=== PATIENT | male | born 1965 | race Caucasian/White ===

== ENCOUNTER 2017-11-06 19:04 | Emergency (ER) | payer BC ==
[~2017-11-06] VITALS: Ht 185.4 cm; Wt 93.0 kg
[2017-11-06] MEDS ORDERED: MOBIC15 MG PO (21:23)
[2017-11-06] MEDS ORDERED: NORCO 5-325 TA1 EACH PO (21:23)
[2017-11-06] MEDS ORDERED: VALIUM5 MG PO (21:23)
== END 2017-11-06 21:53 | disposition home or self-care (01) ==
LOC: ER 19:04
DX: M54.5 Low back pain (principal); I10 Essential (primary) hypertension; Z98.84 Bariatric surgery status; Z87.891 Personal history of nicotine dependence; Z91.041 Radiographic dye allergy status

== ENCOUNTER 2017-11-08 06:38 | Emergency (ER) | payer BC ==
[~2017-11-08] VITALS: Ht 185.4 cm; Wt 93.0 kg
[~2017-11-08 06:38] MED LIST: MOBIC15 MG PO; NORCO 5-325 TA1 EACH PO; VALIUM5 MG PO
[2017-11-08] MEDS ORDERED: NORCO 5-325 TA1 EACH PO (07:09)
== END 2017-11-08 08:08 | disposition home or self-care (01) ==
LOC: ER 06:38
DX: G89.29 Other chronic pain (principal); M54.9 Dorsalgia, unspecified; I10 Essential (primary) hypertension; Z98.84 Bariatric surgery status; Z87.891 Personal history of nicotine dependence; Z91.041 Radiographic dye allergy status